=== PATIENT | female | born 1980 | race Caucasian/White ===

== ENCOUNTER → 2017-11-16 12:20 | Outpatient (CLI) | payer OTHER, SELFPAY ==
[2017-11-16 14:21] LABS: Chlamydia Trachomatis by PCR Negative (Negative); Neisserai gonorrhoeae by PCR Negative (Negative); Probe Check PASS; Sample Adequacy Control PASS; Specimen Processing Control PASS
== END ==
PROVIDERS: Visit Provider Nurse Practitioner Women's Health
DX: N76.0 Acute vaginitis (principal)
CPT/HCPCS: 87070; 87077; 87106; 87205; 87491; 87591

== ENCOUNTER → 2022-01-12 | Outpatient (CLI) | payer OTHER, SELFPAY ==
[2022-01-12 12:28] LABS: Absolute Lymphocyte Count 1.55 X10^3/uL (0.83-4.51); Absolute Neutrophil Count 5.4 X10^3/uL (2.0-7.7); Basophil# 0.03 X10^3/uL; Basophil% 0.4 % (0-1); Eosinophil# 0.29 X10^3/uL; Eosinophils% 3.7 % (0-5); Hematocrit 45.8 % (37-47); Hemoglobin 15.4 g/dL (12.0-15.0); Lymphocyte # 1.55 X10^3/ul (0.83-4.51); Lymphocyte % 19.9 % (19-41); Mean Corp Hgb Conc 33.6 g/dL (32-36); Mean Corpuscular Hgb 30.4 pg (27.0-32.0); Mean Corpuscular Volume 90.5 fL (81-99); Mean Platelet Vol. 9.5 fl (6.2-12.0); Monocyte% 6.4 % (0-10); NRBC Flagged by Analyzer 0 % (0-5); Neutrophil # 5.38 X10^3/uL (2.7-7.7); Neutrophil % 69.2 % (47-70); Platelet Count 362 K/mm3 (150-450); RBC Distribution Width CV 11.8 % (11.6-14.6); Red Blood Count 5.06 M/mm3 (4.2-5.4); White Blood Count 7.8 K/mm3 (4.4-11.0)
[2022-01-12 12:47] LABS: Hemoglobin A1c 5.4 % (3.8-5.6); Progesterone Level 8.92 ng/mL (See Comment); Vitamin B12 762 pg/mL (211-911); Vitamin D,25 Hydroxy 27.2 ng/mL
[2022-01-12 14:42] LABS: AST(SGOT) 17 U/L (15-37); Alanine Aminotransfer ALT/SGPT 28 U/L (13-56); Albumin, Serum 3.8 g/dL (3.2-5.0); Alkaline Phosphatase 87 U/L (45-117); Anion Gap 7 (5-15); BUN 9 mg/dL (7-18); BUN/Creat Ratio 12.6 RATIO (10-20); Calcium,Total 9.1 mg/dL (8.5-10.1); Chloride 105 mmol/L (98-107); Cholesterol 220 mg/dL (200); Creatinine, Serum 0.72 mg/dL (0.55-1.02); EST Glomerular Filtration Rate 94 mL/min (>60); Est Glom Filt Rate - Afr Amer 114 mL/min (>60); Estradiol 124.4 pg/mL; Ferritin 29 ng/mL (8-252); Free T3 2.5 pg/mL (2.18-3.98); Globulin 3.8 g/dL (2.2-4.2); Glucose 88 mg/dL (74-106); High Density Lipoprotein 61 mg/dL; Iron 109 ug/dL (50-170); Potassium 4.2 mmol/L (3.5-5.1); Protein, Total 7.6 g/dL (6.4-8.2); Sodium Level 137 mmol/L (136-145); T4 Free Direct 0.69 ng/dL (0.76-1.46); T4 Total, Thyroxin 6.9 ug/dL (4.8-13.9); Thyroid Stim Hormone (TSH) < 0.01 uIU/mL (0.358-3.74); Triglycerides 175 mg/dL; Very Low Density Lipoprotein 35 mg/dL (5-40)
[2022-01-15 11:10] LABS: Testosterone, % Free 0.92 % (0.50-2.80); Testosterone, Free 0.29 ng/dL (0.10-0.85); Testosterone, Total 31 ng/dL (4-50)
== END | disposition home or self-care (01) ==
LOC: BIMLAB 08:35
PROVIDERS: Visit Provider Nurse Practitioner Family
DX: E03.9 Hypothyroidism, unspecified (principal); R53.83 Other fatigue
CPT/HCPCS: 36415; 80053; 80061; 82306; 82533; 82607; 82627; 82670; 82728; 83036; 83540; 84144; 84402; 84403; 84436; 84439; 84443; 84481; 85025; 82626

== ENCOUNTER → 2022-03-04 | Outpatient (CLI) | payer OTHER, SELFPAY ==
[2022-03-04 11:24] LABS: Hemoglobin A1c 5.4 % (3.8-5.6)
[2022-03-04 11:43] LABS: Vitamin D,25 Hydroxy 39.1 ng/mL
[2022-03-04 11:49] LABS: Thyroid Stim Hormone (TSH) < 0.01 uIU/mL (0.358-3.74)
[2022-03-05 16:34] LABS: Adrenocorticotropic Hormone 14.5 pg/mL (7.2-63.3)
== END | disposition home or self-care (01) ==
LOC: LABSPEC 10:54
PROVIDERS: Visit Provider Nurse Practitioner Family
DX: E23.6 Other disorders of pituitary gland (principal); E55.9 Vitamin D deficiency, unspecified; E03.9 Hypothyroidism, unspecified
CPT/HCPCS: 82024; 82306; 83036; 84439; 84443; 84481

== ENCOUNTER → 2022-03-07 | Outpatient (CLI) | payer OTHER, SELFPAY ==
[2022-03-07 13:09] LABS: CRP 3.67 mg/L (0.0-3.0)
[2022-03-10 15:48] LABS: EBV Acute VCA IgM < 36.0 U/mL (0.0-35.9)
== END | disposition home or self-care (01) ==
PROVIDERS: Visit Provider Nurse Practitioner Family
DX: R59.9 Enlarged lymph nodes, unspecified (principal); R60.9 Edema, unspecified; R53.83 Other fatigue; R63.1 Polydipsia; B99.9 Unspecified infectious disease
CPT/HCPCS: 86140; 86664; 86665

== ENCOUNTER → 2022-04-16 | Outpatient (CLI) | payer OTHER, SELFPAY ==
--- NOTE | 2022-04-16 14:26 | US_ITS ---
STUDY: THYROID ULTRASOUND EXAMINATION OF 1433 HOURS ON 04/16/2022 REASON FOR EXAM: 41-year-old female status post right thyroidectomy. Palpable left thyroid nodule. TECHNIQUE: Ultrasound evaluation of the thyroid was performed with real-time and static reyes-scale imaging. COMPARISON: None. 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 The left thyroid lobe measures 4.3 cm in length by 1.1 cm in transverse diameter by 1.5 cm in AP diameter. There is no evidence of left thyroid lobe cystic or solid mass lesions. There is normal left thyroid lobe echogenicity. There are no parathyroid abnormalities. US/Thyroid IMPRESSION: 1. Previous right thyroid lobectomy. 2. Isthmus is not visualized. 3. Left thyroid lobe is of normal size for progression. 4. No cystic or solid mass lesions in the left thyroid lobe. 5. Normal left thyroid lobe echogenicity. 6. No parathyroid abnormalities. Electronically Signed: Jh Rivera MD at 17:21 EDT ,
== END | disposition home or self-care (01) ==
LOC: US 14:25
PROVIDERS: PCP Nurse Practitioner Family; Referring Provider Nurse Practitioner Family; Visit Provider Nurse Practitioner Family
DX: E04.1 Nontoxic single thyroid nodule (principal)
CPT/HCPCS: 76536

== ENCOUNTER → 2022-04-23 | Outpatient (REF) | payer OTHER, SELFPAY ==
[2022-04-23 16:06] LABS: Free T3 3.9 pg/mL (2.18-3.98); T4 Free Direct 0.74 ng/dL (0.76-1.46); Thyroid Stim Hormone (TSH) < 0.01 uIU/mL (0.358-3.74)
== END ==
LOC: LABSPEC 15:03
PROVIDERS: PCP Nurse Practitioner Family; Visit Provider Nurse Practitioner Family
DX: E03.9 Hypothyroidism, unspecified (principal); R53.83 Other fatigue
CPT/HCPCS: 84439; 84443; 84481